=== PATIENT | male | born 1975 | race Caucasian/White ===

== ENCOUNTER 2016-09-25 10:20 | Inpatient (IN) | payer SELFPAY ==
[~2016-09-25] VITALS: Ht 175.3 cm; Wt 82.4 kg
[2016-09-25] MEDS ORDERED: MORPHINE SULFATE 4 MG/ML SYRINGE IVP ONE (14:30)
[2016-09-25] MEDS ORDERED: SODIUM CHLORIDE 0.9% 1,000 ML IV ONE ×3 (14:30→18:00)
[2016-09-25] MEDS ORDERED: FAMOTIDINE 10 MG/ML 2 ML VIAL IVP ONE (14:30)
[2016-09-25] MEDS ORDERED: ONDANSETRON HCL 4 MG/2 ML VIAL IVP ONE (14:30)
[2016-09-25 14:47] LABS: HEMATOCRIT 52.8 % (41-53); HEMOGLOBIN 17.2 g/dL (13.5-17.5); MEAN CORPUSCULAR HEMOGLOBIN 33.4 pg (26.0-34.0); MEAN CORPUSCULAR HGB CONC 32.5 G/dL (31.0-37.0); MEAN CORPUSCULAR VOLUME 103 fL (80-100); PLATELET COUNT (AUTO) 184 K/uL (150-450); RED BLOOD CELL COUNT(AUTO) 5.14 MIL/uL (4.50-5.90); RED CELL DISTRIBUTION WIDTH 14.2 % (11.5-14.5); WHITE BLOOD COUNT (AUTO) 11.2 K/uL (4.5-11.0)
[2016-09-25 15:51] LABS: LYMPHOCYTES % (MANUAL) 17 % (22-44); TOTAL CELLS COUNTED 100
[2016-09-25 16:17] LABS: ANION GAP 27 mmol/L (8-16); CARBON DIOXIDE 13 mmol/L (22-29); CHLORIDE 77 mmol/L (98-107); POTASSIUM 8.2 mmol/L (3.5-5.1); SODIUM SERUM 117 mmol/L (136-145)
[2016-09-25 16:18] LABS: ALBUMIN 3.7 g/dL (3.4-5.0); CALCIUM, TOTAL 8.9 mg/dL (8.8-10.5); UREA NITROGEN, BLOOD 33 mg/dL (7-18)
[2016-09-25] MEDS ORDERED: HYDROmorphone 2 MG/ML SYRINGE IVP ONE ×2 (16:30→20:00)
[2016-09-25 16:32] LABS: ALANINE AMINOTRANSFERASE 104 U/L (12-78); ASPARTATE AMINOTRANSFERASE 34 U/L (15-37); BILIRUBIN,TOTAL 0.6 mg/dL (0.1-1.0); CREATININE 1.98 mg/dL (0.60-1.30); GLOMERULAR FILTR. RATE CALC 38 mL/min (>60)
[2016-09-25 16:33] LABS: TOTAL PROTEIN, SERUM 7.8 g/dL (6.4-8.2)
[2016-09-25] MEDS ORDERED: INSULIN REGULAR, HUMAN 100 UNITS in SODIUM CHLORIDE 0.9% 99 ML IV PRN ×2 (16:44)
[2016-09-25] MEDS ORDERED: INSULIN REGULAR, HUMAN 100 UNITS/ML IVP ONE ×2 (16:45→21:30)
[2016-09-25] MEDS ORDERED: SODIUM POLYSTYRENE SULFONATE 15 GM/60 ML SUSPENSION BOTTLE PO ONE (16:45)
[2016-09-25] MEDS ORDERED: ALBUTEROL SULFATE 5 MG/ML 20 ML NEB SOLN [BULK] NEB ONE (16:45)
[2016-09-25 16:47] LABS: GLUCOSE COMMENT 1 Doctor Notified; GLUCOSE,POINT OF CARE > 600 MG/DL (70-110)
[2016-09-25 16:54] LABS: INFLUENZA TYPE B NEGATIVE FOR TYPE B (NEGATIVE)
[2016-09-25 17:04] LABS: SALICYLATE 11.8 mg/dL (2.8-20.0)
[2016-09-25 17:08] LABS: ABG A-A DIFF O2 20.7 mmHg (10-20.0); ABG BASE EXCESS -15.4 mmol/L (-2.0-3.0); ABG HCO3 14.3 mmol/L (22.0-26.0); ABG OXYHEMOGLOBIN 95.7 % (94.0-100.0); ABG PCO2 28 mmHg (35-45); TEMPERATURE, FAHRENHEIT, BG 97.8 FAHREN (96.0-98.6)
[2016-09-25 17:09] LABS: ABG PH 7.249 (7.350-7.450); ALLEN TEST, BLOOD GAS Positive
[2016-09-25 17:40] LABS: APPEARANCE,URINE CLEAR (CLEAR); GLUCOSE, URINE (UA) >=1000 mg/dL (NEGATIVE); KETONES,URINE 40 mg/dL (NEGATIVE); LEUKOCYTE ESTERASE ,URINE NEGATIVE (NEGATIVE); OCCULT BLOOD,URINE TRACE (NEGATIVE); PROTEIN,URINE NEGATIVE (NEGATIVE)
[2016-09-25 17:52] LABS: SQUAMOUS EPITHELIAL CELL,UR Rare /LPF (None Seen)
[2016-09-25 17:53] LABS: WBC,URINE 0-2 /HPF (0-5)
[2016-09-25 18:13] LABS: LACTIC ACID 3.4 mmol/L (0.4-2.0)
[2016-09-25 18:21] LABS: ACETAMINOPHEN < 2 mcg/mL (10-30); PHOSPHORUS 8.6 mg/dL (2.5-4.9)
[2016-09-25 18:40] LABS: REFLEX LACTIC ACID? YES YES
[2016-09-25 18:41] LABS: POTASSIUM 4.9 mmol/L (3.5-5.1)
[2016-09-25 18:41] LABS: GLUCOSE COMMENT 1 Doctor Notified; GLUCOSE,POINT OF CARE > 600 MG/DL (70-110)
[2016-09-25 18:42] LABS: CALCIUM, TOTAL 7.9 mg/dL (8.8-10.5)
[2016-09-25] MEDS ORDERED: DEXTROSE 5%-0.45% SODIUM CHL 1,000 ML IV PRN ×2 (18:54→21:26)
[2016-09-25] MEDS ORDERED: POTASSIUM CHL 20 MEQ/0.45% NS 1,000 ML IV PRN ×2 (18:54→21:26)
[2016-09-25] MEDS ORDERED: SODIUM CHLORIDE 0.45% 1,000 ML IV PRN ×2 (18:54→21:26)
[2016-09-25] MEDS ORDERED: SODIUM CHLORIDE 0.9% 1,000 ML IV SCH (18:54)
[2016-09-25] MEDS ORDERED: POTASSIUM CHLORIDE 40 MEQ in SODIUM CHLORIDE 0.45% 1,000 ML IV PRN ×2 (18:54→21:26)
[2016-09-25] MEDS ORDERED: INSULIN REGULAR, HUMAN 100 UNITS/ML IVP PRN ×2 (19:00→21:30)
[2016-09-25] MEDS ORDERED: ACETAMINOPHEN 325 MG TABLET PO PRN ×2 (19:00→20:00)
[2016-09-25] MEDS ORDERED: 0.9% SODIUM CHLORIDE 10 ML SYRINGE IVP PRN (19:00)
[2016-09-25] MEDS ORDERED: ONDANSETRON HCL 4 MG/2 ML VIAL IVP PRN ×2 (19:00→20:00)
[2016-09-25] MEDS ORDERED: DEXTROSE 50%-WATER 25 GM/50 ML SYRINGE IVP PRN ×2 (19:00→21:30)
[2016-09-25 19:10] LABS: CREATININE 1.44 mg/dL (0.60-1.30)
[2016-09-25] MEDS ORDERED: IPRATROPIUM BROMIDE 0.5 MG/2.5 ML NEB SOLUTION NEB PRN (20:00)
[2016-09-25] MEDS ORDERED: BISACODYL 10 MG RECTAL RECTAL SUPPOSITORY PR PRN (20:00)
[2016-09-25] MEDS ORDERED: MAGNESIUM HYDROXIDE SUSPENSION 30 ML UDCUP PO PRN (20:00)
[2016-09-25] MEDS ORDERED: ALBUTEROL SULFATE 2.5 MG/0.5 ML NEB SOLUTION NEB PRN (20:00)
[2016-09-25] MEDS ORDERED: ZOLPIDEM TARTRATE 5 MG TABLET PO PRN (20:00)
[2016-09-25] MEDS: HEPARIN SODIUM,PORCINE 5,000 UNITS/ML VIAL SQ SCH (20:37)
[2016-09-25] MEDS: INSULIN REGULAR, HUMAN 100 UNITS in SODIUM CHLORIDE 0.9% 99 ML IV PRN ×4 (20:39→21:43)
[2016-09-25 21:27] VITALS: BP 93/54
[2016-09-25 21:51] LABS: CALCIUM, TOTAL 7.9 mg/dL (8.8-10.5)
[2016-09-25] MEDS: INSULIN REGULAR, HUMAN 100 UNITS/ML IVP PRN ×3 (21:51→23:10)
[2016-09-25 22:01] VITALS: BP 126/84
[2016-09-25] MEDS: OxyCODONE HCL/ACETAMINOPHEN 5-325 MG TABLET PO PRN (22:01)
[2016-09-25 22:09] LABS: CREATININE 1.33 mg/dL (0.60-1.30)
[2016-09-25 22:31] VITALS: BP 126/84
[2016-09-25] MEDS ORDERED: BENZOCAINE/MENTHOL LOZENGE [8 LOZENGES/PACKET] PO PRN (23:30)
[2016-09-25 23:41] VITALS: BP 126/77
[2016-09-25] MEDS: MORPHINE SULFATE 2 MG/ML SYRINGE IVP PRN (23:41)
[2016-09-25 23:51] VITALS: BP 126/77
[2016-09-26] VITALS (9 sets, daily range): BP systolic 103–124; BP diastolic 66–78
[2016-09-26] MEDS: INSULIN REGULAR, HUMAN 100 UNITS/ML IVP PRN ×2 (00:21→01:10)
[2016-09-26] MEDS ORDERED: INFLUENZA VIRUS VACCINE QVS 2016-17 (3YR+)/PF 60 MCG/0.5 ML SYRINGE IM ONE (01:15)
[2016-09-26 02:02] LABS: ANION GAP 13 mmol/L (8-16); CALCIUM, TOTAL 7.6 mg/dL (8.8-10.5); CARBON DIOXIDE 25 mmol/L (22-29); CHLORIDE 108 mmol/L (98-107); CREATININE 1.06 mg/dL (0.60-1.30); GLOMERULAR FILTR. RATE CALC > 60 mL/min (>60); SODIUM SERUM 146 mmol/L (136-145); UREA NITROGEN, BLOOD 17 mg/dL (7-18)
[2016-09-26 02:58] LABS: POTASSIUM 2.9 mmol/L (3.5-5.1)
[2016-09-26] MEDS: OxyCODONE HCL/ACETAMINOPHEN 5-325 MG TABLET PO PRN ×4 (04:05→17:36)
[2016-09-26] MEDS: MORPHINE SULFATE 2 MG/ML SYRINGE IVP PRN ×3 (06:03→20:43)
[2016-09-26] MEDS: INSULIN REGULAR, HUMAN 100 UNITS in SODIUM CHLORIDE 0.9% 99 ML IV PRN ×2 (06:15)
[2016-09-26] MEDS ORDERED: POTASSIUM CHLORIDE 20 MEQ ER TABLET PO PRN (06:30)
[2016-09-26] MEDS ORDERED: POTASSIUM CHL 10 MEQ/WATER 50 ML IV PRN (06:30)
[2016-09-26 06:36] LABS: GLUCOSE COMMENT 1 Received Meds; GLUCOSE,POINT OF CARE 402 MG/DL (70-110)
[2016-09-26 06:36] LABS: GLUCOSE,POINT OF CARE 350 MG/DL (70-110)
[2016-09-26 06:42] LABS: GLUCOSE,POINT OF CARE 260 MG/DL (70-110)
[2016-09-26 06:43] LABS: GLUCOSE COMMENT 1 Received Meds; GLUCOSE,POINT OF CARE 195 MG/DL (70-110)
[2016-09-26 06:43] LABS: GLUCOSE,POINT OF CARE 205 MG/DL (70-110)
[2016-09-26 06:43] LABS: GLUCOSE,POINT OF CARE 300 MG/DL (70-110)
[2016-09-26 06:43] LABS: GLUCOSE,POINT OF CARE 148 MG/DL (70-110)
[2016-09-26 06:43] LABS: GLUCOSE COMMENT 1 Received Meds; GLUCOSE,POINT OF CARE 172 MG/DL (70-110)
[2016-09-26 07:14] LABS: HEMOGLOBIN A1C 11.9 % (4.5-6.2)
[2016-09-26 07:28] LABS: ALBUMIN 2.7 g/dL (3.4-5.0); ANION GAP 11 mmol/L (8-16); BILIRUBIN,TOTAL 0.5 mg/dL (0.1-1.0); CALCIUM, TOTAL 7.4 mg/dL (8.8-10.5); CARBON DIOXIDE 27 mmol/L (22-29); CHLORIDE 109 mmol/L (98-107); CHOL/HDL RATIO 9.5 (4.2-7.3); CREATININE 0.96 mg/dL (0.60-1.30); GLOMERULAR FILTR. RATE CALC > 60 mL/min (>60); PHOSPHORUS 2.5 mg/dL (2.5-4.9); SODIUM SERUM 147 mmol/L (136-145); THYROID STIMULATING HORMONE 0.57 uIU/mL (0.36-3.74); UREA NITROGEN, BLOOD 14 mg/dL (7-18)
[2016-09-26 08:00] LABS: POTASSIUM 2.7 mmol/L (3.5-5.1)
[2016-09-26] MEDS: HEPARIN SODIUM,PORCINE 5,000 UNITS/ML VIAL SQ SCH ×2 (08:01→20:42)
[2016-09-26] MEDS: PANTOPRAZOLE SODIUM 40 MG DR TABLET PO SCH (08:02)
[2016-09-26 08:53] LABS: ALANINE AMINOTRANSFERASE 64 U/L (12-78); ASPARTATE AMINOTRANSFERASE 18 U/L (15-37)
[2016-09-26] MEDS ORDERED: DEXTROSE 50%-WATER 25 GM/50 ML SYRINGE IVP PRN (10:30)
[2016-09-26] MEDS ORDERED: BENZOCAINE/MENTHOL LOZENGE [8 LOZENGES/PACKET] PO PRN (12:30)
[2016-09-26 16:02] LABS: GLUCOSE,POINT OF CARE 179 MG/DL (70-110)
[2016-09-26] MEDS: POTASSIUM CHLORIDE 10 MEQ ER TABLET PO SCH ×2 (16:46→20:42)
[2016-09-26] MEDS: INSULIN ASPART 100 UNITS/ML SQ PRN ×2 (17:40→21:31)
[2016-09-26] MEDS ORDERED: PNEUMOCOCCAL VACCINE POLYVALENT 0.5 ML VIAL [PPSV23] IM ONE (18:00)
[2016-09-26] MEDS ORDERED: INSULIN DETEMIR 100 UNITS/ML SQ SCH (21:00)
[2016-09-26 21:48] LABS: GLUCOSE COMMENT 1 Doctor Notified; GLUCOSE,POINT OF CARE 435 MG/DL (70-110)
[2016-09-26 22:07] LABS: GLUCOSE COMMENT 1 Received Meds; GLUCOSE,POINT OF CARE 317 MG/DL (70-110)
[2016-09-27 01:12] LABS: GLUCOSE COMMENT 1 Received Meds; GLUCOSE,POINT OF CARE 161 MG/DL (70-110)
[2016-09-27 01:12] LABS: GLUCOSE COMMENT 1 Received Meds; GLUCOSE,POINT OF CARE 147 MG/DL (70-110)
[2016-09-27 01:12] LABS: GLUCOSE,POINT OF CARE 137 MG/DL (70-110)
[2016-09-27 01:12] LABS: GLUCOSE COMMENT 1 Received Meds; GLUCOSE,POINT OF CARE 191 MG/DL (70-110)
[2016-09-27] MEDS: MORPHINE SULFATE 2 MG/ML SYRINGE IVP PRN ×2 (02:34→08:40)
[2016-09-27 05:42] VITALS: BP 110/72
[2016-09-27 06:41] LABS: GLUCOSE COMMENT 1 Received Meds; GLUCOSE,POINT OF CARE 289 MG/DL (70-110)
[2016-09-27] MEDS: INSULIN ASPART 100 UNITS/ML SQ PRN (06:41)
[2016-09-27 07:04] LABS: HEMATOCRIT 39.4 % (41-53); MEAN CORPUSCULAR HEMOGLOBIN 34.2 pg (26.0-34.0); MEAN CORPUSCULAR HGB CONC 35.6 G/dL (31.0-37.0); MEAN CORPUSCULAR VOLUME 96 fL (80-100); PLATELET COUNT (AUTO) 170 K/uL (150-450); RED BLOOD CELL COUNT(AUTO) 4.09 MIL/uL (4.50-5.90); RED CELL DISTRIBUTION WIDTH 13.1 % (11.5-14.5); WHITE BLOOD COUNT (AUTO) 12.6 K/uL (4.5-11.0)
[2016-09-27 07:30] VITALS: BP 129/78
[2016-09-27 08:30] LABS: ALBUMIN 2.5 g/dL (3.4-5.0); ANION GAP 9 mmol/L (8-16); BILIRUBIN,TOTAL 0.8 mg/dL (0.1-1.0); CALCIUM, TOTAL 7.2 mg/dL (8.8-10.5); CARBON DIOXIDE 29 mmol/L (22-29); CHLORIDE 101 mmol/L (98-107); POTASSIUM 3.6 mmol/L (3.5-5.1); SODIUM SERUM 139 mmol/L (136-145)
[2016-09-27] MEDS: POTASSIUM CHLORIDE 10 MEQ ER TABLET PO SCH (08:38)
[2016-09-27] MEDS: PANTOPRAZOLE SODIUM 40 MG DR TABLET PO SCH (08:38)
[2016-09-27] MEDS: HEPARIN SODIUM,PORCINE 5,000 UNITS/ML VIAL SQ SCH (08:39)
[2016-09-27 09:44] LABS: BAND NEUTROPHILS % (MANUAL) 3 % (1-5); EOSINOPHILS % (MANUAL) 2 % (1-6); LYMPHOCYTES % (MANUAL) 44 % (22-44); TOTAL CELLS COUNTED 100
[2016-09-27 09:46] LABS: CREATININE 0.67 mg/dL (0.60-1.30); GLOMERULAR FILTR. RATE CALC > 60 mL/min (>60); UREA NITROGEN, BLOOD 7 mg/dL (7-18)
[2016-09-27 09:47] LABS: ALANINE AMINOTRANSFERASE 72 U/L (12-78); ASPARTATE AMINOTRANSFERASE 37 U/L (15-37); TOTAL PROTEIN, SERUM 5.5 g/dL (6.4-8.2)
[2016-09-27] MEDS ORDERED: PERCT PO (10:52)
[2016-09-27] MEDS ORDERED: INSLAN SQ (10:52)
[2016-09-27] MEDS ORDERED: SIMV-260 PO (10:52)
[2016-09-27] MEDS: OxyCODONE HCL/ACETAMINOPHEN 5-325 MG TABLET PO PRN (11:09)
[2016-09-27 11:29] VITALS: BP 130/83
[2016-09-27] MEDS ORDERED: MORPHINE SULFATE 2 MG/ML SYRINGE IVP ONE (12:15)
[2016-09-27 17:27] LABS: GLUCOSE COMMENT 1 Received Meds; GLUCOSE,POINT OF CARE 425 MG/DL (70-110)
[2016-09-27 18:31] LABS: GLUCOSE,POINT OF CARE 346 MG/DL (70-110)
[2016-09-27 20:47] LABS: GLUCOSE,POINT OF CARE 121 MG/DL (70-110)
== END 2016-09-27 13:11 | disposition home or self-care (01) | DRG 638 ==
LOC: EMS 10:23 → ICU 20:28 → 6N 09-26 12:01
PROVIDERS: ADMIT Internal Medicine; ATTEND Internal Medicine
DX: E10.10 Type 1 diabetes mellitus with ketoacidosis without coma (principal); E87.1 Hypo-osmolality and hyponatremia; N17.9 Acute kidney failure, unspecified; F17.210 Nicotine dependence, cigarettes, uncomplicated; E87.5 Hyperkalemia; J02.9 Acute pharyngitis, unspecified; M54.5 Low back pain; E83.51 Hypocalcemia; G89.29 Other chronic pain; E83.39 Other disorders of phosphorus metabolism; E83.41 Hypermagnesemia; Z90.411 Acquired partial absence of pancreas; Z72.89 Other problems related to lifestyle; Z71.6 Tobacco abuse counseling; Z79.4 Long term (current) use of insulin; Z91.14 Patient's other noncompliance with medication regimen; Z28.21 Immunization not carried out because of patient refusal
CPT/HCPCS: 74176; 82306; 82805; 82962; 83036; 83605; 83735; 84100; 84132; 84443; 87081; 87804; 90471; 93005; 96361; 96365; 96366; 96374; 96375; 96376; 99291; G0480; G0481; J1170; J1644; J1815; J2270; J2405; J3480; J3490; J7030; J7050